=== PATIENT | male | born 1950 | race Caucasian/White ===

== ENCOUNTER 2019-07-13 13:33 | Outpatient (CLI) | payer MEDICARE, OTHER ==
--- NOTE | 2019-07-14 09:54 | MRI ---
MRI PROSTATE WITH AND WITHOUT CONTRAST: HISTORY: Prostate cancer. TECHNIQUE: Multiplanar, multisequence MR images were obtained of the prostate with and without IV contrast. FINDINGS: There is moderate hypertrophy of the central gland, consistent with BPH. A prominent median lobe of t he prostate is seen. No suspicious low T2 signal lesion is seen within the prostate. No restricted di ffusion is seen in the peripheral zone of the prostate. No low signal is seen on the ADC map in the p eripheral zone of the prostate. The seminal vessels are intact. The neurovascular bundles are intact. No pelvic adenopathy is seen. N o marrow signal abnormality is present. IMPRESSION: PI-RADS category 2 - low likelihood that a clinically significant cancer is present. POS: C
== END 2019-07-13 13:34 | disposition home or self-care (01) ==
LOC: TBSIIMAG 13:33
PROVIDERS: ATTEND Radiology Radiation Oncology
DX: C61 Malignant neoplasm of prostate (principal)
CPT/HCPCS: 72197; 82565